=== PATIENT | male | born 1995 | race African-American/Black ===

== ENCOUNTER 2019-04-16 15:05 | Emergency (ER) | payer OTHER ==
[~2019-04-16] VITALS: Ht 172.7 cm; Wt 99.8 kg
[2019-04-16] MEDS ORDERED: IBUPROFEN 800800 M1 PO (16:07)
[2019-04-16] MEDS ORDERED: AMOXICILLIN 50500 MG PO (16:07)
[2019-04-16 16:50] VITALS: BP 154/69
== END 2019-04-16 16:50 | disposition home or self-care (01) ==
LOC: ER 15:05
DX: J02.0 Streptococcal pharyngitis (principal)

== ENCOUNTER 2019-06-09 22:11 | Emergency (ER) | payer OTHER ==
[~2019-06-09] VITALS: Ht 188 cm; Wt 99.8 kg
[~2019-06-09 22:11] MED LIST: AMOXICILLIN 50500 MG PO; IBUPROFEN 800800 M1 PO
[2019-06-10 00:30] VITALS: BP 112/71
== END 2019-06-10 00:35 | disposition home or self-care (01) ==
LOC: ER 22:11
DX: M54.5 Low back pain (principal)